=== PATIENT | male | born 1995 | race American Indian/Alaskan Native ===

== ENCOUNTER 2018-09-20 19:40 | Emergency (ER) | payer SELFPAY ==
[2018-09-20 20:36] VITALS: BP 129/69
== END 2018-09-20 20:45 | disposition left against medical advice (07) ==
LOC: ED 19:40
DX: M79.89 Other specified soft tissue disorders (principal); Z53.21 Procedure and treatment not carried out due to patient leaving prior to being seen by health care provider

== ENCOUNTER 2018-09-20 22:42 | Emergency (ER) | payer OTHER ==
[2018-09-20 22:52] VITALS: BP 171/90
--- NOTE | 2018-09-21 01:25 | Emergency Department Report ---
ED General Adult HPI - General Chief complaint: Extremity Injury, Lower Stated complaint: LEG PAIN (BOTH) Source: patient Mode of arrival: Ambulatory Limitations: No Limitations - History of Present Illness Initial comments: Patient is a 22-year-old -[place] male with no past medical history who presents to the ED with complaint of persistent intermittent bilateral ankle swelling for the last 1 week, worse in the last 2 days. Patient denies fall, traumatic injury, ankle pains, heavy lifting, numbness and tingling of lower extremities bilaterally, shortness of breath or chest pain, fever or chills. Patient states that he is on his feet most of the day at work and at the swelling has increased significantly. MD Complaint: bilateral ankle swelling -: Gradual, week(s) (2) Location: lower extremity (bilateral ankles) Radiation: non-radiation Severity scale (0 -10): 1 Quality: aching, dull Consistency: constant Improves with: none Worsens with: none Associated Symptoms: denies other symptoms. denies: confusion, chest pain, cough, diaphoresis, fever/chills, loss of appetite, nausea/vomiting, rash, seizure, shortness of breath, syncope Treatments Prior to Arrival: none - Related Data Previous Rx's Medication Instructions Recorded Last Taken Type Ibuprofen [Motrin] 600 mg PO Q8H PRN #20 tablet 09/21/18 Unknown Rx predniSONE [Deltasone] 60 mg PO QDAY #15 tab 09/21/18 Unknown Rx Allergies Allergy/AdvReac Type Severity Reaction Status Date / Time No Known Allergies Allergy Unverified 09/20/18 20:10 ED Review of Systems ROS: Stated complaint: LEG PAIN (BOTH) Other details as noted in HPI Comment: All other systems reviewed and negative Constitutional: no symptoms reported, see HPI. denies: diaphoresis, fever Eyes: as per HPI. denies: eye pain, eye discharge, vision change ENT: as per HPI. denies: ear pain, throat pain, hearing loss, epistaxis Respiratory: no symptoms reported, see HPI. denies: cough, orthopnea, shortness of breath, SOB with exertion, SOB at rest Cardiovascular: as per HPI. denies: chest pain, palpitations, dyspnea on exertion, edema, paroxysmal nocturnal dyspnea, other Endocrine: no symptoms reported, see HPI. denies: excessive sweating, flushing, intolerance to heat, increased hunger, increased urine, unexplained weight gain Gastrointestinal: as per HPI. denies: abdominal pain, nausea, vomiting, diarrhea, constipation, melena, hematochezia Genitourinary: as per HPI Musculoskeletal: as per HPI, joint swelling (bilateral ankle swelling). denies: back pain, arthralgia, myalgia Skin: as per HPI. denies: rash, lesions, change in color, change in hair/nails Neurological: as per HPI. denies: headache, weakness, numbness, paresthesias, abnormal gait Psychiatric: as per HPI. denies: anxiety, auditory hallucinations, visual hallucinations Hematological/Lymphatic: as per HPI ED Past Medical Hx - Past Medical History Previous Medical History?: No - Surgical History Past Surgical History?: Yes Additional Surgical History: right shoulder - Social History Smoking Status: Current Every Day Smoker Substance Use Type: None - Medications Home Medications: Home Medications Medication Instructions Recorded Confirmed Last Taken Type Ibuprofen [Motrin] 600 mg PO Q8H PRN #20 tablet 09/21/18 Unknown Rx predniSONE [Deltasone] 60 mg PO QDAY #15 tab 09/21/18 Unknown Rx ED Physical Exam - General Limitations: No Limitations General appearance: alert, in no apparent distress - Head Head exam: Present: atraumatic, normocephalic, normal inspection - Eye Eye exam: Present: normal appearance, PERRL, EOMI. Absent: scleral icterus, conjunctival injection, nystagmus, periorbital swelling, periorbital tenderness Pupils: Present: normal accommodation - ENT ENT exam: Present: normal exam, normal orophraynx, mucous membranes moist, TM's normal bilaterally, normal external ear exam - Neck Neck exam: Present: normal inspection, full ROM. Absent: meningismus, lymphadenopathy - Respiratory Respiratory exam: Present: normal lung sounds bilaterally. Absent: respiratory distress, rhonchi, stridor, chest wall tenderness, accessory muscle use, prolonged expiratory - Cardiovascular Cardiovascular Exam: Present: regular rate, normal rhythm, normal heart sounds. Absent: bradycardia, tachycardia - GI/Abdominal GI/Abdominal exam: Present: soft, normal bowel sounds. Absent: hyperactive bowel sounds, hypoactive bowel sounds, organomegaly, bruit - Rectal Rectal exam: Present: deferred - Extremities Exam Extremities exam: Present: normal inspection, full ROM, normal capillary refill, joint swelling (bilateral ankles). Absent: tenderness, calf tenderness - Back Exam Back exam: Present: normal inspection. Absent: full ROM, tenderness, CVA tenderness (R), CVA tenderness (L), muscle spasm, paraspinal tenderness, vertebral tenderness - Neurological Exam Neurological exam: Present: alert, oriented X3, CN II-XII intact, normal gait, reflexes normal - Psychiatric Psychiatric exam: Present: normal affect - Skin Skin exam: Present: warm, dry, intact, normal color ED Course Vital Signs 09/20/18 22:46 Temperature 98.1 F Pulse Rate 86 Respiratory 18 Rate Blood Pressure 171/90 O2 Sat by Pulse 99 Oximetry - Reevaluation(s) Reevaluation #1: 09/21/18 01:25 Patient is alert and oriented 3 and is not in distress. Physical exam shows mild bilateral ankle joint swelling with no tenderness. Patient advised to elevate his legs above his heart when at rest. Patient also advised to take [id number] anti-inflammatory medications to reduce swelling. Patient advised to follow-up with his primary care physician in 7-10 days for reevaluation or return to the ED immediately if symptoms get worse. ED Medical Decision Making - Medical Decision Making Patient is alert and oriented 3 and is not in distress. Physical exam shows mild bilateral ankle joint swelling with no tenderness. Patient advised to elevate his legs above his heart when at rest. Patient also advised to take [id number] anti-inflammatory medications to reduce swelling. Patient advised to follow-up with his primary care physician in 7-10 days for reevaluation or return to the ED immediately if symptoms get worse. 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 - Differential Diagnosis bilateral ankle swelling; tendonitis of ankles Critical care attestation.: If time is entered above; I have spent that time in minutes in the direct care of this critically ill patient, excluding procedure time. ED Disposition Clinical Impression: Tendonitis of ankle Ankle swelling Qualifiers: Laterality: unspecified laterality Qualified Code(s): M25.473 - Effusion, unspecified ankle Disposition: - TO HOME OR SELFCARE Is pt being admited?: No Does the pt Need Aspirin: No Condition: Stable Instructions: Tendinitis (ED), Ankle Exercises (GEN) Additional Instructions: Follow-up with your primary care physician in 7-10 days for reevaluation. Take medications with food and drink plenty of fluids as advised. Elevate your legs above the heart when at rest. Prescriptions: predniSONE [Deltasone] 60 mg PO QDAY #15 tab Ibuprofen [Motrin] 600 mg PO Q8H PRN #20 tablet PRN Reason: Pain Referrals: ROSA MARIA ALMANZA MD [Primary Care Provider] - 3-5 Days Forms: Accompanied Note, Work/School Release Form(ED) Time of Disposition: 01:30 Print Language: BANGLADESHI
== END 2018-09-21 01:30 | disposition home or self-care (01) ==
LOC: ED 22:42
DX: M77.9 Enthesopathy, unspecified (principal); M25.473 Effusion, unspecified ankle; F17.200 Nicotine dependence, unspecified, uncomplicated
CPT/HCPCS: 99281